=== PATIENT | female | born 1995 | race Two or more races ===

== ENCOUNTER → 2017-09-01 | Outpatient (REF) | payer OTHER ==
[2017-09-01 20:34] LABS: CHLAMYDIA DNA AMPLIFICATION NEGATIVE (NEGATIVE); GC DNA AMPLIFICATION NEGATIVE (NEGATIVE)
== END ==
LOC: M LAB REF 15:53
DX: Z01.419 Encounter for gynecological examination (general) (routine) without abnormal findings (principal)

== ENCOUNTER → 2017-09-21 | Outpatient (CLI) | payer OTHER ==
[2017-09-27 08:07] LABS: F003-IGE CODFISH <0.10 kU/L (Class 0); F023-IGE CRAB <0.10 kU/L (Class 0); F024-IGE SHRIMP <0.10 kU/L (Class 0); F037-IGE MUSSEL <0.10 kU/L (Class 0); F040-IGE TUNA <0.10 kU/L (Class 0); F041-IGE SALMON <0.10 kU/L (Class 0); F080-IGE LOBSTER <0.10 kU/L (Class 0); F207-IGE CLAM <0.10 kU/L (Class 0); F258-IGE SQUID <0.10 kU/L (Class 0); F290-IGE OYSTER <0.10 kU/L (Class 0)
== END ==
LOC: M SMT 12:24
DX: Z91.013 Allergy to seafood (principal); Z91.018 Allergy to other foods
CPT/HCPCS: 82785